=== PATIENT | female | born 1985 | race Two or more races ===

== ENCOUNTER 2022-04-18 15:30 | Inpatient (IN) | payer MEDICAID, OTHER ==
[~2022-04-18] VITALS: Ht 162.6 cm; Wt 59.0 kg
[2022-04-18] MEDS ORDERED: InsuLIN REG 1unit/0.01ml Soln (100units/ml) IV ONE (17:30)
[2022-04-18] MEDS ORDERED: LORazepam 2MG/ML-1ML VIAL IV ONE (17:30)
[2022-04-18] MEDS ORDERED: ONDANSETRON HCL 4 MG/2 ML VIAL IV ONE (17:30)
[2022-04-18] MEDS ORDERED: SODIUM CHLORIDE 0.9% 3,900 ML IV ONE (17:30)
[2022-04-18 17:39] LABS: Hemoglobin 12.9 g/dL (12.2-16.2); Mean Corpuscular Hemoglobin 28.3 pg (28.0-32.0); Mean Corpuscular Hgb Conc. 29.4 g/dL (32.0-36.0); Mean Corpuscular Volume 96.3 fL (80.0-100.0); Red Blood Cells 4.56 10^6/uL (4.0-5.20); Red Cell Distribution Width 15.5 % (11.8-14.3); White Blood Cell 8.8 10^3/uL (4.4-10.8)
[2022-04-18 17:45] LABS: Basophils % (manual) 0 (0.0-2.0); Blast Cells 0; Eosinophils % (manual) 0 (0-7); Myelocytes % 0; Promyelocytes % 0; Reactive Lymphocytes 0
[2022-04-18] MEDS ORDERED: SODIUM CHLORIDE 0.9% 1,000 ML IV ONE (18:15)
[2022-04-18 18:50] LABS: Band Neutrophils % (manual) 5; Lymphocytes % (manual) 13 (10.0-50.0); Metamyelocytes % 3; Monocytes % (manual) 3 (0-12)
[2022-04-18 19:14] LABS: Potassium 4.7 mmol/L (3.5-5.1)
[2022-04-18 19:17] LABS: Albumin 3.1 g/dL (3.4-5.0); BUN/Creatinine Ratio 20.5; Bilirubin, Total 0.5 mg/dL (0.2-1.0); Calcium 9.5 mg/dL (8.5-10.1); Magnesium 2.7 mg/dL (1.6-2.6); Phosphorus 6.2 mg/dL (2.5-4.90); Total Protein 7.4 g/dL (6.4-8.2)
[2022-04-18] MEDS ORDERED: DEXTROSE (50%) 50ML SYRG IV PRN (19:30)
[2022-04-18] MEDS ORDERED: POTASSIUM CHL 20MEQ/100ML 200 ML IV PRN (19:30)
[2022-04-18] MEDS: ACCU-CHEK COMFORT CURVE STRIP VI SCH ×3 (19:30→22:38)
[2022-04-18] MEDS ORDERED: SODIUM CHLORIDE 0.9% 2,000 ML IV ONE (20:15)
[2022-04-18] MEDS ORDERED: InsuLIN R (HUMAN) 100 UNITS in SODIUM CHL 0.9% 99 ML IV SCH (20:45)
[2022-04-18 21:11] LABS: BUN/Creatinine Ratio 22.4; Calcium 8.8 mg/dL (8.5-10.1); Potassium 5.3 mmol/L (3.5-5.1)
[2022-04-18 21:13] LABS: Magnesium 2.4 mg/dL (1.6-2.6)
[2022-04-18] MEDS ORDERED: SODIUM BICARBONATE 8.4 % INJ 50ML VIAL IV ONE ×2 (22:00→22:04)
[2022-04-18] MEDS ORDERED: NITROGLYCERIN 0.4 MG SL TAB SL PRN (22:15)
[2022-04-18] MEDS ORDERED: MORPHINE SULFATE INJ 2 MG/ml SYRG IV PRN (22:15)
[2022-04-18] MEDS ORDERED: POTASSIUM CHL 20MEQ/100ML 0 ML IV ONE (22:18)
[2022-04-18] MEDS: ONDANSETRON HCL 4 MG/2 ML VIAL IV PRN (23:00)
[2022-04-18] MEDS ORDERED: HYDROcodone-ACET 5/325MG TAB PO ONE (23:00)
[2022-04-18] MEDS ORDERED: SODIUM CHLORIDE 0.9% 1,000 ML IV SCH (23:30)
[2022-04-19] VITALS (14 sets, daily range): BP systolic 78–140; BP diastolic 34–90
[2022-04-19] MEDS: ACCU-CHEK COMFORT CURVE STRIP VI SCH ×11 (00:24→22:25)
[2022-04-19] MEDS ORDERED: InsuLIN R (HUMAN) 100 UNITS in SODIUM CHL 0.9% 99 ML IV SCH (00:30)
[2022-04-19] MEDS ORDERED: SODIUM CHLORIDE 0.9% 1,000 ML IV SCH ×2 (01:30→14:45)
[2022-04-19 01:31] LABS: BUN/Creatinine Ratio 20.1; Calcium 8.2 mg/dL (8.5-10.1); Potassium 4.1 mmol/L (3.5-5.1)
[2022-04-19] MEDS ORDERED: DEXTROSE (50%) 50ML SYRG IV PRN ×2 (05:30→10:45)
[2022-04-19 07:27] LABS: Basophils # (auto) 0 10 ^3/uL (0-0.2); Basophils % (auto) 0.2 % (0.0-2.0); Eosinophils # (auto) 0 10 ^3/uL (0-0.8); Eosinophils % (auto) 0.2 % (0.0-7.0); Hematocrit 35.7 % (36.0-46.0); Hemoglobin 11.2 g/dL (12.2-16.2); Lymphocytes # (auto) 1.4 10 ^3/uL (0.4-5.4); Lymphocytes % (auto) 12.4 % (10.0-50.0); Mean Corpuscular Hemoglobin 28.3 pg (28.0-32.0); Mean Corpuscular Hgb Conc. 31.5 g/dL (32.0-36.0); Mean Corpuscular Volume 90.1 fL (80.0-100.0); Monocytes # (auto) 0.9 10 ^3/uL (0-1.3); Monocytes % (auto) 8.1 % (0.0-12.0); Neutrophils # (auto) 9.1 10 ^3/uL (1.6-8.6); Neutrophils % (auto) 79.1 % (37.0-80.0); Red Blood Cells 3.96 10^6/uL (4.0-5.20); Red Cell Distribution Width 14.8 % (11.8-14.3); White Blood Cell 11.5 10^3/uL (4.4-10.8)
[2022-04-19 07:43] LABS: Albumin 2.7 g/dL (3.4-5.0); BUN/Creatinine Ratio 19.7; Calcium 8.2 mg/dL (8.5-10.1); Potassium 4.6 mmol/L (3.5-5.1)
[2022-04-19 07:48] LABS: Urine Bacteria FEW /hpf (None Seen); Urine Blood Negative /uL (Negative); Urine Hyaline Cast FEW /lpf (0 - 2); Urine Specific Gravity 1.012 (1.001-1.035); Urine WBC 7 /hpf (0 - 5)
[2022-04-19 07:49] LABS: Bilirubin, Total 0.4 mg/dL (0.2-1.0); Total Protein 6.5 g/dL (6.4-8.2)
[2022-04-19] MEDS ORDERED: ACCU-CHEK COMFORT CURVE STRIP VI SCH (08:00)
[2022-04-19] MEDS ORDERED: InsuLIN REG 1unit/0.01ml Soln (100units/ml) SC SCH (08:00)
[2022-04-19] MEDS: ONDANSETRON HCL 4 MG/2 ML VIAL IV PRN (08:56)
[2022-04-19] MEDS: PANTOPRAZOLE 40 MG/10 ML VIAL INJ IV SCH (10:15)
[2022-04-19] MEDS ORDERED: INSULIN LANTUS (GLARGINE) 1 /0.01ml (100units/ml) SC ONE (10:45)
[2022-04-19] MEDS ORDERED: MORPHINE SULFATE INJ 2 MG/ml SYRG IV PRN (11:00)
[2022-04-19 11:32] LABS: Basophils # (auto) 0.1 10 ^3/uL (0-0.2); Eosinophils # (auto) 0 10 ^3/uL (0-0.8); Eosinophils % (auto) 0.1 % (0.0-7.0); Lymphocytes # (auto) 1.8 10 ^3/uL (0.4-5.4)
[2022-04-19] MEDS: SODIUM CHLORIDE 0.9% 1,000 ML IV SCH ×3 (11:33→16:50)
[2022-04-19 11:34] LABS: Basophils % (auto) 0.5 % (0.0-2.0); Hemoglobin 11.6 g/dL (12.2-16.2); Lymphocytes % (auto) 12.3 % (10.0-50.0); Mean Corpuscular Hemoglobin 28.2 pg (28.0-32.0); Mean Corpuscular Hgb Conc. 31.3 g/dL (32.0-36.0); Mean Corpuscular Volume 90.3 fL (80.0-100.0); Monocytes # (auto) 0.6 10 ^3/uL (0-1.3); Monocytes % (auto) 3.8 % (0.0-12.0); Neutrophils # (auto) 12.1 10 ^3/uL (1.6-8.6); Neutrophils % (auto) 83.3 % (37.0-80.0); Red Blood Cells 4.09 10^6/uL (4.0-5.20); Red Cell Distribution Width 15.1 % (11.8-14.3); White Blood Cell 14.6 10^3/uL (4.4-10.8)
[2022-04-19] MEDS: InsuLIN R (HUMAN) 100 UNITS in SODIUM CHL 0.9% 99 ML IV SCH ×2 (12:00→20:27)
[2022-04-19 12:17] LABS: BUN/Creatinine Ratio 17.1; Calcium 8.3 mg/dL (8.5-10.1); Phosphorus 3.1 mg/dL (2.5-4.90); Potassium 5.3 mmol/L (3.5-5.1)
[2022-04-19 17:28] LABS: BUN/Creatinine Ratio 16.7; Calcium 8.3 mg/dL (8.5-10.1); Potassium 4.2 mmol/L (3.5-5.1)
[2022-04-19] MEDS: MORPHINE SULFATE INJ 2 MG/ml SYRG IV PRN (18:44)
[2022-04-19 23:11] LABS: BUN/Creatinine Ratio 15.4; Potassium 3.9 mmol/L (3.5-5.1)
[2022-04-20] VITALS (12 sets, daily range): BP systolic 105–153; BP diastolic 56–100
[2022-04-20] MEDS: ACCU-CHEK COMFORT CURVE STRIP VI SCH ×8 (01:30→12:36)
[2022-04-20] MEDS: SODIUM CHLORIDE 0.9% 1,000 ML IV SCH ×2 (03:30→06:05)
[2022-04-20 03:56] LABS: Basophils # (auto) 0 10 ^3/uL (0-0.2); Basophils % (auto) 0.4 % (0.0-2.0); Eosinophils # (auto) 0.1 10 ^3/uL (0-0.8); Eosinophils % (auto) 1.3 % (0.0-7.0); Hematocrit 33.2 % (36.0-46.0); Hemoglobin 10.5 g/dL (12.2-16.2); Lymphocytes # (auto) 2.1 10 ^3/uL (0.4-5.4); Lymphocytes % (auto) 22.6 % (10.0-50.0); Mean Corpuscular Hemoglobin 28.9 pg (28.0-32.0); Mean Corpuscular Hgb Conc. 31.6 g/dL (32.0-36.0); Mean Corpuscular Volume 91.3 fL (80.0-100.0); Monocytes # (auto) 0.4 10 ^3/uL (0-1.3); Monocytes % (auto) 4.8 % (0.0-12.0); Neutrophils # (auto) 6.7 10 ^3/uL (1.6-8.6); Neutrophils % (auto) 70.9 % (37.0-80.0); Nucleated Red Blood Cells % 0.1 %; Red Blood Cells 3.64 10^6/uL (4.0-5.20); Red Cell Distribution Width 15.2 % (11.8-14.3); White Blood Cell 9.4 10^3/uL (4.4-10.8)
[2022-04-20 04:19] LABS: BUN/Creatinine Ratio 12.7; Calcium 8.2 mg/dL (8.5-10.1); Potassium 3.8 mmol/L (3.5-5.1)
[2022-04-20] MEDS: MORPHINE SULFATE INJ 2 MG/ml SYRG IV PRN (08:14)
[2022-04-20] MEDS: PANTOPRAZOLE 40 MG/10 ML VIAL INJ IV SCH (09:51)
[2022-04-20] MEDS ORDERED: INSULIN LANTUS (GLARGINE) 1 /0.01ml (100units/ml) SC SCH (10:00)
[2022-04-20] MEDS ORDERED: INSLISPI SC ×2 (11:19→12:23)
[2022-04-20] MEDS ORDERED: INSU100I49 SC (12:23)
[2022-04-20] MEDS ORDERED: DEXTROSE (50%) 50ML SYRG IV PRN (13:00)
[2022-04-20] MEDS: InsuLIN REG 1unit/0.01ml Soln (100units/ml) SC SCH ×2 (13:05→17:00)
[2022-04-20] MEDS ORDERED: BLOO1KIT60 XX (15:55)
[2022-04-20] MEDS ORDERED: LANCKIT12 XX (15:55)
[2022-04-20] MEDS ORDERED: ALCO1PAD XX (15:55)
[2022-04-20] MEDS ORDERED: INSLANTI SC (16:38)
[2022-04-20] MEDS ORDERED: ACCU-CHEK COMFORT CURVE STRIP VI SCH (17:00)
[2022-04-20] MEDS ORDERED: InsuLIN REG 1unit/0.01ml Soln (100units/ml) SC SCH (22:00)
== END 2022-04-20 17:15 | disposition home or self-care (01) | DRG 420 ==
LOC: ER 15:30 → EDBD 15:30 → TELE 22:14 → TELE-EAST 04-19 07:59 → ICU WEST 04-19 11:44 → TELE 04-20 16:18 → ICU WEST 04-20 16:22
PROVIDERS: ADMIT Nurse Practitioner; ATTEND Internal Medicine Pulmonary Disease
DX: E11.10 Type 2 diabetes mellitus with ketoacidosis without coma (principal); E86.0 Dehydration; Z91.14 Patient's other noncompliance with medication regimen; Z85.6 Personal history of leukemia
CPT/HCPCS: 36415; 36600; 70450; 74176; 80048; 80053; 81001; 81025; 82010; 82805; 82962; 83735; 83930; 84100; 85007; 85025; 85027; 87081; 93005; 96361; 96365; 96366; 96375; 99291; C9113; G0378; J1815; J2405; J3480